=== PATIENT | female | born 1975 | race Caucasian/White ===

== ENCOUNTER → 2020-04-11 11:04 | Outpatient (BNVA) | payer MEDICARE, BC, SELFPAY | PROVIDERS: Family Provider Family Medicine; PCP Family Medicine; Visit Provider Family Medicine | DX: M79.671 Pain in right foot (principal); R50.9 Fever, unspecified; R30.0 Dysuria; N12 Tubulo-interstitial nephritis, not specified as acute or chronic | CPT/HCPCS: 73630; 81003; 85025; 87400; 87880 ==

== ENCOUNTER → 2020-05-12 09:00 | Outpatient (BNVA) | payer MEDICARE, BC, SELFPAY | PROVIDERS: Family Provider Family Medicine; PCP Family Medicine; Visit Provider Nurse Practitioner Family | DX: Z11.59 Encounter for screening for other viral diseases (principal) | CPT/HCPCS: 87635 ==